=== PATIENT | female | born 2000 | race African-American/Black ===

== ENCOUNTER 2020-10-19 17:43 | Emergency (ER) | payer BC ==
[~2020-10-19] VITALS: Ht 162.6 cm; Wt 59.0 kg
[2020-10-19 19:45] VITALS: BP 106/60
--- NOTE | 2020-10-19 19:50 | NUR ---
Pt presents to ED with C/O nausea, vomiting, intermittent abdominal cramping. States, "Had period 08/29/20 and took test two weeks ago and it was negative. She took another one yesterday and it was positive. Wanting to know whether we can tell her how far along she is." No other complaints.
[2020-10-19 20:22] LABS: EOSINOPHIL # 0.3 10^3/uL (0.0-0.2); EOSINOPHIL % 6.6 % (0.0-5.0); LYMPHOCYTES # 1.77 10^3/uL1 (1.0-4.8); LYMPHOCYTES % 45.2 % (24.0-44.0); MEAN CORP HGB 27.8 pg (26-34); MONOCYTES # 0.5 10^3/uL (0.3-0.8); MONOCYTES % 13.3 % (5.0-12.0); NEUTROPHIL # 1.3 10^3/uL (1.8-7.7); NEUTROPHILS % 33.6 % (41.0-85.0); PLATELET COUNT 228 10^3/uL (150-400); RED CELL DISTRIBUTION WIDTH 13.8 % (11.5-14.5)
[2020-10-19 20:25] LABS: UA COLOR YELLOW
[2020-10-19 20:26] LABS: BILIRUBIN,URINE NEGATIVE (NEGATIVE)
[2020-10-19 20:56] LABS: CALCIUM 8.9 mg/dL (8.4-10.5)
--- NOTE | 2020-10-19 21:41 | ER.PDOC ---
General Chief Complaint: less 20 wks Stated Complaint: , VOMITING,CRAMPING TRAVEL OUT OF US: No Time seen by MD: 19:37 Source: patient History of Present Illness Initial Comments 20-year-old female presents to the ER complaining of nausea and vomiting. She states she was told she was about a month and a half ago after she missed her last menstrual period in August. She states at times she has difficulty keeping food down and At times has difficulty consuming large volumes of fluids. She believes she is because she had a positive test but she was also had follow-up test that was negative. She has not sought OB care at this time.She denies abdominal pain she denies vaginal bleeding. Past Medical History Medical History: no pertinent history Surgical History: no surgical history Social History Alcohol Use: occassionally Drug Use: none Review of Systems Constitutional: denies no symptoms reported, denies see HPI, denies chills, denies diaphoresis, denies fever, denies malaise, denies weakness, denies other EENTM: denies no symptoms reported, denies see HPI, denies eye pain, denies blurred vision, denies tearing, denies double vision, denies ear pain, denies ear discharge, denies nose pain, denies nose congestion, denies throat pain, denies throat swelling, denies mouth pain, denies mouth swelling, denies other Respiratory: denies no symptoms reported, denies see HPI, denies cough, denies orthopnea, denies shortness of breath, denies stridor, denies wheezing, denies other Cardiovascular: denies no symptoms reported, denies see HPI, denies chest pain, denies edema, denies palpitations, denies syncope, denies other Gastrointestinal: denies no symptoms reported, denies see HPI, denies abdominal pain, denies constipation, denies diarrhea; nausea, vomiting; denies other Genitourinary: denies no symptoms reported, denies see HPI, denies discharge, denies dysuria, denies frequency, denies hematuria, denies pain, denies other Musculoskeletal: denies no symptoms reported, denies see HPI, denies back pain, denies gout, denies joint pain, denies joint swelling, denies muscle pain, denies muscle stiffness, denies neck pain, denies other Skin: denies no symptoms reported, denies see HPI, denies change in color, denies change in hair/nails, denies dryness, denies lesions, denies lumps, denies rash, denies other Psychiatric/Neurological: denies no symptoms reported, denies see HPI, denies anxiety, denies depressed, denies emotional problems, denies headache, denies numbness, denies paresthesia, denies pre-existing deficit, denies seizure, denies tingling, denies tremors, denies weakness, denies other Hematologic/Lymphatic: denies no symptoms reported, denies see HPI, denies anemia, denies blood clots, denies easy bleeding, denies easy bruising, denies swollen glands, denies other Immunological/Allergic: denies no symptoms reported, denies see HPI, denies food allergy, denies grass allergy, denies mold allergy, denies pollen allergy, denies HIV/AIDS, denies transplant Physical Exam General Appearance: No Apparent Distress, WD/WN EENT: eyes nml inspection, nml ENT inspection Neck: Non-Tender Respiratory: chest non-tender, no respiratory distress CVS: reg rate & rhythm, no murmur, no gallop Gastrointestinal: Normal Bowel Sounds, Non Tender Extremities: Normal Range of Motion, Non-Tender, Normal Inspection 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, No Motor/Sensory Deficits Skin: Normal Color Results/Orders Results/Orders Orders - RAMÓN FERGUSON DO Hcg, Quantitative (10/19/20 20:05) Urinalysis (10/19/20 20:05) Cbc With Auto Diff (10/19/20 20:05) Comprehensive Metabolic Panel (10/19/20 20:05) Vital Signs Date Time Temp Pulse Resp B/P (MAP) Pulse Ox O2 Delivery O2 Flow Rate FiO2 10/19/20 19:45 99.1 66 18 10/19/20 19:45 99.1 66 18 100 10/19/20 19:45 99.1 66 18 106/60 (75) 100 Laboratory Tests Test 10/19/20 20:10 10/19/20 20:20 Urine Collection Type UNKNOWN Urine Color YELLOW Urine Appearance CLEAR Urine Bilirubin NEGATIVE (NEGATIVE) Urine Ketones TRACE (NEGATIVE) H Urine Specific [place] 1.025 (1.005-1.030) Urine pH 7.0 (4.5-8.0) Urine Protein NEGATIVE (NEGATIVE) Urine Urobilinogen 1.0 E.U./dL (0.2) Urine Nitrate NEGATIVE (NEGATIVE) Urine Leukocyte Esterase NEGATIVE (NEGATIVE) Urine Glucose (Auto)(UA) NEGATIVE (NEGATIVE) Urine Blood NEGATIVE (NEGATIVE) White Blood Count 3.9 10^3/uL (4.5-11.0) L Red Blood Count 4.68 10^6/uL (4.00-5.20) Hemoglobin 13.0 g/dL (12.0-15.0) Hematocrit 40.9 % (36.0-46.0) Mean Corpuscular Volume 87.4 fL (78-100) Mean Corpuscular Hemoglobin 27.8 pg (26-34) Mean Corpuscular Hemoglobin Concent 31.8 g/dL (33-36.5) L Red Cell Distribution Width 13.8 % (11.5-14.5) Platelet Count 228 10^3/uL (150-400) Mean Platelet Volume 10.0 fL (7.8-11.0) Neutrophils (%) (Auto) 33.6 % (41.0-85.0) L Lymphocytes (%) (Auto) 45.2 % (24.0-44.0) H Monocytes (%) (Auto) 13.3 % (5.0-12.0) H Neutrophils # (Auto) 1.3 10^3/uL (1.8-7.7) L Lymphocytes # (Auto) 1.77 10^3/uL1 (1.0-4.8) Monocytes # (Auto) 0.5 10^3/uL (0.3-0.8) Absolute Immature Granulocyte (auto 0.01 10^3 u/L (0-2) Absolute Eosinophils (auto) 0.3 10^3/uL (0.0-0.2) H Immature Granulocytes % 0.30 % (0.00-0.50) Eosinophils % 6.6 % (0.0-5.0) H Basophils % 1.0 % (0.0-0.2) H Basophils # 0.0 10^3/uL (0.0-0.1) Sodium Level 137 mmol/L (132-145) Potassium Level 3.5 mmol/L (3.6-5.2) L Chloride Level 103.0 mmol/L (96-109) Carbon Dioxide Level 25.0 mmol/L (20.0-32) Anion Gap 12.5 Blood Urea Nitrogen 10 mg/dL (7-18) Creatinine 0.74 mg/dL (0.59-1.40) Estimated GFR () 118.7 (>/=60) Est GFR (CKD-EPI)(Non-Afr [place]) 98.1 (>/=60) BUN/Creatinine Ratio 13.0 Glucose Level 79 mg/dL (70-110) Calcium Level 8.9 mg/dL (8.4-10.5) Total Bilirubin 1.5 mg/dL (0.2-1.0) H Aspartate Amino Transferase (AST) 16 U/L (0-35) Alanine Aminotransferase (ALT) 13 U/L (12-78) Alkaline Phosphatase 69 U/L (50-136) Total Protein 7.2 g/dL (6.4-8.2) Albumin 3.6 g/dL (3.4-5.0) Globulin 3.6 Albumin/Globulin Ratio 1.000 Human Chorionic Gonadotropin, Quant 71074 mIU/mL Progress Progress Discussed care. Advised her that her test was consistent with valid . Advised patient she needs to make appointment with OB. She agreed to start taking vitamins. She knows not to drink alcohol or use drugs. ER DEPART Departure Time of Disposition: 21:41 Disposition: 01 HOME / SELF CARE / HOMELESS Impression: Primary Impression: Nausea and vomiting in Condition: Improved Patient Instructions: ABCs of Referrals: PCP,UNKNOWN (PCP) PRIMARY CARE PROVIDER Additional Instructions: You were seen in the ED today by Dr. Ferguson and had the following: Lab work, urinalysis, hcg test. Follow up with an [facility] [employer] Duration or Time Spent with Pa: 20 RAMÓN FERGUSON DO Oct 19, 2020 21:41
== END 2020-10-19 21:55 | disposition home or self-care (01) ==
LOC: ER 17:43
DX: O21.9 Vomiting of pregnancy, unspecified (principal); O26.892 Other specified pregnancy related conditions, second trimester; Z3A.00 Weeks of gestation of pregnancy not specified
CPT/HCPCS: 36415; 80053; 81001; 81003; 84702; 85025; 99283